=== PATIENT | male | born 1945 | race Caucasian/White ===

== ENCOUNTER → 2016-09-16 | Outpatient (CLI) | payer OTHER | LOC: PCVCCLINIC 14:00 | PROVIDERS: ATTEND Internal Medicine Cardiovascular Disease | DX: I25.10 Atherosclerotic heart disease of native coronary artery without angina pectoris (principal); I73.9 Peripheral vascular disease, unspecified; I77.9 Disorder of arteries and arterioles, unspecified; I10 Essential (primary) hypertension; E78.00 Pure hypercholesterolemia, unspecified; M19.90 Unspecified osteoarthritis, unspecified site; J44.9 Chronic obstructive pulmonary disease, unspecified; I48.91 Unspecified atrial fibrillation | CPT/HCPCS: 93005; G0463 ==

== ENCOUNTER → 2017-03-23 | Outpatient (CLI) | payer OTHER | END | disposition home or self-care (01) | LOC: PCVCCLINIC 15:10 | PROVIDERS: ATTEND Internal Medicine Cardiovascular Disease | DX: I48.91 Unspecified atrial fibrillation (principal); I73.9 Peripheral vascular disease, unspecified; I25.10 Atherosclerotic heart disease of native coronary artery without angina pectoris; I77.89 Other specified disorders of arteries and arterioles; J44.9 Chronic obstructive pulmonary disease, unspecified; E78.00 Pure hypercholesterolemia, unspecified; M19.90 Unspecified osteoarthritis, unspecified site; N18.9 Chronic kidney disease, unspecified; I12.9 Hypertensive chronic kidney disease with stage 1 through stage 4 chronic kidney disease, or unspecified chronic kidney disease; Z95.1 Presence of aortocoronary bypass graft; Z96.651 Presence of right artificial knee joint; Z87.891 Personal history of nicotine dependence; Z79.82 Long term (current) use of aspirin; Z79.84 Long term (current) use of oral hypoglycemic drugs; Z95.5 Presence of coronary angioplasty implant and graft | CPT/HCPCS: 80061; 93005; G0463 ==

== ENCOUNTER → 2017-08-23 | Outpatient (CLI) | payer MEDICARE ==
--- NOTE | 2017-08-23 15:16 | PCVCIMAG ---
EXAM: BILATERAL CAROTID DUPLEX INDICATION: Carotid Occlusive Disease. FINDINGS: Doppler Measurements (centimeters per second): RIGHT: Peak CCA-68, Peak ECA-314, Diastolic ICA-66, Peak ICA-294, ICA/CCA Ratio-4.3. LEFT: Peak CCA-83, Peak ECA-138, Diastolic ICA-59, Peak ICA-208, ICA/CCA Ratio-2.5. RIGHT CAROTID: Previous stent in the upper common carotid artery and extending into the internal carotid artery shows shadowing in its midportion. The proximal internal carotid artery shows 70-80% stenosis. The common carotid artery shows no significant stenosis. The external carotid artery shows 80% stenosis. LEFT CAROTID: The carotid bulb has moderate to severe plaque. The proximal internal carotid artery shows 60-70% stenosis. The common carotid artery shows no significant stenosis. The external carotid artery shows 40% stenosis. Antegrade flow in both vertebral arteries. IMPRESSION: 70-80% restenosis proximal right internal carotid artery within prior stent has developed since August 2016 study. 60-70% stenosis of the left internal carotid artery with moderately severe plaque plaque is unchanged. LOC:[id number]
--- NOTE | 2017-08-23 16:35 | PCVCIMAG ---
EXAM: BILATERAL LOWER EXTREMITY ARTERIAL DUPLEX INDICATION: Peripheral Arterial Disease. Leg pain. FINDINGS: Right Leg: Satisfactory arterial waveforms in the common femoral and profunda femoral artery. Previous stent in the mid/distal superficial femoral artery and popliteal artery showing satisfactory patency. The anterior tibial, peroneal, and posterior tibial arteries are patent. Left Leg: Satisfactory arterial waveforms in the common femoral profunda femoral artery. Mild stenosis [place] proximal superficial femoral artery not felt to be flow-limiting. The popliteal artery is patent. The anterior tibial, peroneal, and posterior tibial arteries are patent. IMPRESSION: No flow limiting stenosis in the right lower extremity. Previous stent in the right superficial femoral artery and right popliteal artery maintaining adequate patency. No flow limiting stenosis in the left lower extremity as detailed above.. LOC:[id number]
== END | disposition home or self-care (01) ==
LOC: PCVCIMAG 14:07
PROVIDERS: ATTEND Nuclear Medicine Nuclear Cardiology
DX: I65.23 Occlusion and stenosis of bilateral carotid arteries (principal); I73.9 Peripheral vascular disease, unspecified; E78.5 Hyperlipidemia, unspecified; I77.9 Disorder of arteries and arterioles, unspecified; I25.10 Atherosclerotic heart disease of native coronary artery without angina pectoris; I48.91 Unspecified atrial fibrillation; I12.9 Hypertensive chronic kidney disease with stage 1 through stage 4 chronic kidney disease, or unspecified chronic kidney disease; N18.9 Chronic kidney disease, unspecified; J44.9 Chronic obstructive pulmonary disease, unspecified; Z87.891 Personal history of nicotine dependence; Z79.899 Other long term (current) drug therapy
CPT/HCPCS: 36415; 93880; 93925; G0463

== ENCOUNTER → 2017-09-01 | Outpatient (CLI) | payer MEDICARE ==
[~2017-09-01] MED LIST: ASPIRIN 325 MG TABLET ONE; CLOPIDOGREL BISULFATE 75 MG TABLET ONE; DIAZEPAM 10 MG TABLET. ONE; EPINEPHrine 1 MG/ML VIAL ONE; HEPARIN SODIUM 5,000 UNIT/ML VIAL for PCVC. ONE; IODIXANOL 270 MG/ML 100 ML VIAL. ONE; IOHEXOL 300 MG/ML 100ML VIAL. ONE; IOHEXOL 350 MG/ML 100 ML VIAL. ONE; IV NORMAL SALINE 1000ML BAG 1,000 ML ONE; LIDOCAINE 1% Multi-Dose 20 ML VIAL. ONE; MIDAZOLAM HCL/PF 2 MG/2 ML VIAL. ONE; fentaNYL PF VIAL 100 MCG/2 ML VIAL ONE; hydrALAZINE 20 MG/ML VIAL. ONE
--- NOTE | 2017-09-01 10:47 | PCVCINTER ---
EXAM: 1. CERVICOEPHALIC ARCH AORTOGRAM 2. BILATERAL CAROTID ANGIOGRAPHY 3. LEFT VERTEBROBASILAR ANGIOGRAPHY 4. AORTOGRAM AND BILATERAL LOWER EXTREMITY RUNOFF ANGIOGRAM 5. BILATERAL RENAL ANGIOGRAPHY 6. RIGHT SUPERFICIAL FEMORAL ARTERY ATHERECTOMY AND STENT PLACEMENT. 7. SECONDARY THROMBECTOMY RIGHT SUPERFICIAL FEMORAL ARTERY. 8. DRUG COATED BALLOON ANGIOPLASTY RIGHT SUPERFICIAL FEMORAL ARTERY. INDICATION: Carotid occlusive disease. Left subclavian steal. Hypertension. Renal atherosclerosis. Peripheral arterial disease. Right leg claudication. PROCEDURE: Procedure and risks of the procedures listed above were discussed with the patient and consent obtained. Risks including but not limited to bleeding, infection, stroke, vascular injury, neurologic injury, embolization, allergic reactions, and contrast-induced nephropathy requiring dialysis were discussed as appropriate and consent obtained. Patient was placed on the angiography table. IV conscious sedation was utilized with appropriate monitoring from 8:00 AM through 10:00 AM. The left groin was prepped and draped in the normal sterile fashion. Ultrasound was used to interrogate the right groin and demonstrate the left common femoral artery. An ultrasound image was saved. Under ultrasound guidance a 21 gauge needle was used to gain access into the left common femoral artery and a 6F vascular sheath was placed. Dr. Hubbard joined the procedure and he then performed coronary angiography. Please see his separate dictation for full details. I then continued on with the procedure. Catheter was placed into the ascending aorta and cervicocephalic aortic arch angiogram performed. Catheter was placed into the suprarenal abdominal aorta and abdominal aortic angiogram performed. Catheter was placed into the right common carotid artery and right common carotid angiogram performed. Catheter was placed into the left common carotid artery and left common carotid angiogram performed. Catheter was placed into the left subclavian artery and left vertebro-basilar angiogram performed. Catheter was positioned at the aortic bifurcation and both oblique views of the pelvis were obtained. Catheter was positioned into the left external iliac artery and left leg runoff angiography was performed. Catheter was exchanged for a visceral catheter was placed into the right renal arteries and right renal angiograms obtained. Catheter was placed into the the left renal arteries and left renal angiograms were obtained. Catheter was advanced to the level of the right external iliac artery and right leg runoff angiography was obtained. Patient was given 4500 units of heparin. A 6 Upper [place] crossover sheath was placed via the left groin to the level of the right common femoral artery. Atherectomy of the right superficial femoral artery was performed with 2.0 mm SpectranetECOtality laser atherectomy catheter in the standard fashion. Following atherectomy small areas of thrombus were observed and because of this secondary thrombectomy throughout the right superficial femoral artery was carried out with mechanical suction thrombectomy catheter in the standard fashion. Minimal debris was removed. Stent placement across the areas of high-grade stenosis in the right superficial femoral artery was carried out with a 8 x 150 Smart control stent with subsequent dilatation to 6.0 mm. Following this drug coated balloon angioplasty of the right superficial femoral artery was carried out with a 6 x 120 and 6 x 40 Spectranetics Jaqui Bridger [employer] catheters. Follow-up angiogram was performed. Catheters and wires were removed and hemostasis obtained using the FISH device. No immediate complications. FINDINGS: Cervicocephalic arch aortogram: The origins of the great vessels show good patency. The right vertebral artery is dominant. Cranial directed flow in both vertebral arteries. Right common carotid angiogram: The right anterior and middle cerebral distributions are unremarkable. The cavernous and petrous internal carotid artery are patent. Previous stent in the distal common carotid artery and proximal internal carotid artery is widely patent. No significant internal carotid artery stenosis is seen. 80% stenosis at the origin of the external carotid artery. Left common carotid angiogram: The left anterior and middle cerebral distributions are unremarkable. There is a origin of the left posterior cerebral artery which is unremarkable. The cavernous and petrous internal carotid artery is patent. Ulcerated plaque proximal internal carotid artery results in maximum 50% stenosis. The common and external carotid arteries are patent. Left vertebrobasilar angiogram: 95% stenosis at the origin of the left vertebral artery. The left vertebral artery is otherwise patent as is the basilar artery. The left P1 segment is hypoplastic. The right posterior cerebral artery is patent. Aortogram: There is one right and one left renal artery. Mild plaque infrarenal abdominal aorta without significant stenosis. Pelvis: Previous stent in the left common and external iliac arteries is patent. The right common and external iliac artery are patent. The right and left common femoral and profunda femoral arteries are patent. Right renal artery: Moderate plaque proximal vessel does not cause significant stenosis. Left renal artery: Moderate plaque proximal vessel does not cause significant stenosis. Right leg: Areas of 80% stenosis in the mid/distal superficial femoral artery and the midportion of a prior stent and distal to the prior stent. Previous stent in the popliteal artery is widely patent. Three-vessel runoff into the foot. Left le% eccentric stenosis proximal superficial femoral artery is not flow-limiting. Eccentric 50% stenosis in the mid superficial femoral artery. The popliteal artery is patent. Three-vessel runoff into the foot. Right superficial femoral artery: Following procedure as above vessel shows satisfactory patency. IMPRESSION: Previous right internal carotid artery stent is maintaining good patency. No significant right carotid stenosis. Ulcerated plaque proximal left internal carotid artery results in 50% stenosis. 95% stenosis at the origin the left vertebral artery. The right vertebral artery is dominant. Areas of 80% stenosis mid/distal right superficial femoral artery was treated as above with satisfactory patency restored. 50% stenosis in the proximal and mid left superficial femoral artery not felt to be critically flow-limiting. LOC:[id number]
--- NOTE | 2017-09-01 17:18 | PCVCINTER ---
APPROVED REPORT Patient Details Patient Status: Out-Patient Room #: 2 The patient is a 72 year-old Male Event Personnel Balaji Ramírez RT(R), Bev Shin RT(R), Judy Simpson RN Risk Factors Arterial HypertensionDysplipidemia (Type: 1), Peripheral Vascular Disease, Chronic Lung DiseaseHypercholesterolemia, Diabetes (Control: Oral)Last Creatanine 1.3 Previous Procedures/Diagnoses Previous CABGPrevious PCI Procedure Narrative The patient was brought electively to the Cardiac Catheterization Laboratory and was prepped and draped in a sterile manner. The left femoral was infiltrated with 1% Lidocaine subcutaneous anesthesia. The left femoral accessed via ultrasound guidance. A 6fr sheath was inserted into the right femoral artery. Coronary angiography was performed using coronary diagnostic catheters. The right coronary system was accessed and visualized with a JR4 Diagnostic catheter. The left coronary system was accessed and visualized with a JL4 Diagnostic catheter. The left ventricle was accessed and visualized with a Pigtail Diagnostic catheter. Left ventriculogram was performed in ESCAMILLA projection. Closure device was deployed with a 6 Fr Fish. Hemostasis was obtained with manual pressure following sheath removal without any complications. The patient tolerated the procedure well and there were no complications associated with the procedure. There was no hematoma. Hemodynamics The aortic pressure is 152/50 mmHg with a mean of 86 mmHg. The left ventricular pressure is 146/4 mmHg with a mean of 14 mmHg. Conclusion # 1 normal left ventricular size and systolic function slight area of inferior basilar hypokinesis EF 55% #2 left main is small patent giving rise to LAD and circumflex. #3 LAD is mildly disease and occludes in the mid vessel. #4 circumflex OM is mildly diseased nondominant. #5 dominant right occluded #6 SVG to diagonal graft intact with mild disease #7 PARRA to LAD filling the mid-distal LAD diffusely diseased and retrograde filling septal and diagonal #8 SVG to the PDA filling the PDA and CHAPARRO with mild irregularity. Recommendations and plan continue aggressive risk factor modification there is no indication for coronary intervention. No lifting for 48 hours no line tub Jacuzzi or Wilcox for a week.
== END | disposition home or self-care (01) ==
LOC: PCVCINTER 07:22
PROVIDERS: ATTEND Nuclear Medicine Nuclear Cardiology
DX: I70.213 Atherosclerosis of native arteries of extremities with intermittent claudication, bilateral legs (principal); G45.8 Other transient cerebral ischemic attacks and related syndromes; I70.1 Atherosclerosis of renal artery; I65.29 Occlusion and stenosis of unspecified carotid artery; E78.00 Pure hypercholesterolemia, unspecified; E78.5 Hyperlipidemia, unspecified
CPT/HCPCS: 36223; 36225; 36252; 37186; 37227; 75716; 76937; 93459; 99152; 99153; C1725; C1751; C1757; C1760; C1769; C1876; C1885; C1894; C2623; J0171; J0360; J0690; J1644; J2250; J3010; J7030; Q9967

== ENCOUNTER → 2018-01-04 | Outpatient (CLI) | payer MEDICARE | END | disposition home or self-care (01) | LOC: PCVCIMAG 14:32 | DX: I73.9 Peripheral vascular disease, unspecified (principal); I12.9 Hypertensive chronic kidney disease with stage 1 through stage 4 chronic kidney disease, or unspecified chronic kidney disease; N18.9 Chronic kidney disease, unspecified; I48.91 Unspecified atrial fibrillation; I25.10 Atherosclerotic heart disease of native coronary artery without angina pectoris; E78.00 Pure hypercholesterolemia, unspecified; I77.9 Disorder of arteries and arterioles, unspecified; J44.9 Chronic obstructive pulmonary disease, unspecified; Z87.891 Personal history of nicotine dependence; Z79.899 Other long term (current) drug therapy; Z79.82 Long term (current) use of aspirin | CPT/HCPCS: 80061; 93005; 93926; G0463 ==

== ENCOUNTER → 2018-07-20 | Outpatient (CLI) | payer MEDICARE ==
--- NOTE | 2018-07-20 09:55 | PCVCIMAG ---
EXAM: BILATERAL CAROTID DUPLEX INDICATION: Carotid Occlusive Disease. FINDINGS: Doppler Measurements (centimeters per second): RIGHT: Peak CCA-59, Peak ECA-398, Diastolic ICA-59, Peak ICA-299, ICA/CCA Ratio-5.1. LEFT: Peak CCA-69, Peak ECA-129, Diastolic ICA-57, Peak ICA-230, ICA/CCA Ratio-3.0. RIGHT CAROTID: Previous stent upper common carotid artery extending into the internal carotid artery shows satisfactory color flow throughout. Increased systolic velocity proximal internal carotid artery within prior stent is similar to 2017 study at which time conventional angiogram showed the stent to maintaining good patency. The common carotid artery shows no significant stenosis. The external carotid artery shows 90% stenosis. LEFT CAROTID: The carotid bulb has moderately severe plaque. The proximal internal carotid artery shows 60-70% stenosis. The common carotid artery shows no significant stenosis. The external carotid artery shows 40% stenosis. Antegrade flow in both vertebral arteries. IMPRESSION: Increased systolic velocity 299 cm/s within prior stent in the proximal internal carotid artery is similar to 2017 ultrasound study at which time conventional angiography showed the stent was maintaining good patency. 60-70% stenosis of the left internal carotid artery with moderately severe plaque. Findings are unchanged 2017 study at which time conventional angiography showed maximum 50% stenosis. LOC:[id number]
--- NOTE | 2018-07-20 10:27 | PCVCIMAG ---
EXAM: AORTOILIAC DUPLEX INDICATION: Peripheral arterial disease FINDINGS: AORTA: Suprarenal aorta measures maximum diameter of 2.9 cm. There is not a fusiform infrarenal aortic aneurysm. The infrarenal aorta measures maximum diameter of 2.6 cm. No aortic stenosis. RIGHT COMMON ILIAC ARTERY: Maximum diameter is 1.1 cm. No significant stenosis. RIGHT EXTERNAL ILIAC ARTERY: No significant stenosis. LEFT COMMON ILIAC ARTERY: Maximum diameter is 1.1 cm. No significant stenosis. LEFT EXTERNAL ILIAC ARTERY: No significant stenosis. IMPRESSION: No abdominal aortic aneurysm. No aortoiliac stenosis seen. LOC:[id number]
--- NOTE | 2018-07-20 13:06 | PCVCIMAG ---
EXAM: BILATERAL LOWER EXTREMITY ARTERIAL DUPLEX INDICATION: Peripheral Arterial Disease. Leg pain. FINDINGS: Right Leg: Mild stenosis mid common femoral artery. Profunda femoral arteries patent. Superficial femoral artery and popliteal artery are patent. Previous stent mid/distal superficial femoral artery and proximal/mid popliteal artery are patent. The anterior tibial, peroneal, and posterior tibial arteries are patent. Left Leg: Common femoral profunda femoral arteries are patent. Superficial femoral artery and popliteal artery are patent. Anterior tibial, peroneal, and posterior tibial arteries are patent. IMPRESSION: Mild stenosis [place] right mid common femoral artery. Otherwise no flow limiting stenosis in the right lower extremity. Previous right superficial femoral artery and popliteal artery stents are patent. No flow limiting stenosis in the left lower extremity. LOC:[id number]
== END | disposition home or self-care (01) ==
LOC: PCVCIMAG 08:49
PROVIDERS: ATTEND Internal Medicine Cardiovascular Disease
DX: I65.23 Occlusion and stenosis of bilateral carotid arteries (principal); I77.9 Disorder of arteries and arterioles, unspecified; E78.00 Pure hypercholesterolemia, unspecified; I73.9 Peripheral vascular disease, unspecified; M25.551 Pain in right hip; M25.552 Pain in left hip; E78.5 Hyperlipidemia, unspecified; I12.9 Hypertensive chronic kidney disease with stage 1 through stage 4 chronic kidney disease, or unspecified chronic kidney disease; N18.9 Chronic kidney disease, unspecified; I48.91 Unspecified atrial fibrillation; M19.90 Unspecified osteoarthritis, unspecified site; G47.33 Obstructive sleep apnea (adult) (pediatric); Z95.1 Presence of aortocoronary bypass graft; Z87.891 Personal history of nicotine dependence
CPT/HCPCS: 93005; 93880; 93925; 93978; G0463

== ENCOUNTER → 2018-07-22 | Outpatient (CLI) | payer MEDICARE | END | disposition home or self-care (01) | LOC: PCVCCLINIC 09:00 | PROVIDERS: ATTEND Internal Medicine Cardiovascular Disease | DX: I25.10 Atherosclerotic heart disease of native coronary artery without angina pectoris (principal); I48.91 Unspecified atrial fibrillation; I73.9 Peripheral vascular disease, unspecified; E78.00 Pure hypercholesterolemia, unspecified; I10 Essential (primary) hypertension; I65.23 Occlusion and stenosis of bilateral carotid arteries; J44.9 Chronic obstructive pulmonary disease, unspecified; M19.90 Unspecified osteoarthritis, unspecified site; Z95.1 Presence of aortocoronary bypass graft; Z87.891 Personal history of nicotine dependence; Z79.82 Long term (current) use of aspirin | CPT/HCPCS: 93005; G0463 ==

== ENCOUNTER → 2019-01-11 | Outpatient (CLI) | payer MEDICARE | END | disposition home or self-care (01) | LOC: PCVCCLINIC 10:30 | PROVIDERS: ATTEND Internal Medicine Cardiovascular Disease | DX: I12.9 Hypertensive chronic kidney disease with stage 1 through stage 4 chronic kidney disease, or unspecified chronic kidney disease (principal); N18.9 Chronic kidney disease, unspecified; I25.10 Atherosclerotic heart disease of native coronary artery without angina pectoris; I65.23 Occlusion and stenosis of bilateral carotid arteries; E78.00 Pure hypercholesterolemia, unspecified; M25.551 Pain in right hip; M25.552 Pain in left hip; I73.9 Peripheral vascular disease, unspecified; I48.0 Paroxysmal atrial fibrillation; M19.90 Unspecified osteoarthritis, unspecified site; Z79.899 Other long term (current) drug therapy; Z79.82 Long term (current) use of aspirin; Z87.891 Personal history of nicotine dependence | CPT/HCPCS: 36415; 80061; 93005; G0463 ==

== ENCOUNTER → 2019-01-25 | Outpatient (CLI) | payer MEDICARE ==
--- NOTE | 2019-01-25 16:46 | PCVCIMAG ---
EXAM: NONINVASIVE ARTERIAL EXAMINATION OF BOTH LOWER EXTREMITIES INCLUDING PRE AND POST EXERCISE PRESSURE MEASUREMENTS AND DOPPLER WAVEFORMS INDICATION: Peripheral Arterial Disease. Leg pain. FINDINGS: Right Brachial: 132 mm Hg. Right Dorsalis Pedis: Noncompressible . Right Posterior Tibial: 152 mm Hg. Right FELICITA = 1.14. Left Brachial: 133 mm Hg. Left Dorsalis Pedis: Noncompressible. Left Posterior Tibial: 223 mm Hg. Left FELICITA = 1.68. Post Exercise: Left Brachial 153 mm Hg. Right Posterior Tibial: 132 mm Hg. Left Posterior Tibial: 167 mm Hg. Right FELICITA = 0.86. Left FELICITA = 1.09. IMPRESSION: No resting ischemia in the right lower extremity. Minimal exercise induced ischemia in the right lower extremity. No resting ischemia in the left lower extremity. No exercise induced ischemia in the left lower extremity. LOC:[id number]
--- NOTE | 2019-01-25 16:49 | PCVCIMAG ---
EXAM: BILATERAL LOWER EXTREMITY ARTERIAL DUPLEX INDICATION: Peripheral Arterial Disease. Leg pain. FINDINGS: Right Leg: Increased systolic velocity of 291 cm/s mid [place] common femoral artery consistent with 60% stenosis. Profunda femoral arteries patent. Superficial femoral artery and popliteal artery patent including areas of prior stent. The anterior tibial, peroneal, and posterior tibial arteries are patent. Left Leg: Satisfactory arterial waveforms throughout the common/profunda/superficial femoral, popliteal, anterior tibial, peroneal, and posterior tibial arteries. No flow limiting stenosis seen. IMPRESSION: 60% stenosis mid [place] right common femoral artery. Previous right superficial femoral artery and popliteal artery stents are patent. No flow limiting stenosis in the left lower extremity. LOC:[id number]
== END | disposition home or self-care (01) ==
LOC: PCVCIMAG 08:00
PROVIDERS: ATTEND Nuclear Medicine Nuclear Cardiology
DX: I73.9 Peripheral vascular disease, unspecified (principal); I10 Essential (primary) hypertension; M25.551 Pain in right hip; M25.552 Pain in left hip
CPT/HCPCS: 93924; 93925

== ENCOUNTER → 2019-07-31 | Outpatient (CLI) | payer MEDICARE ==
[~2019-07-31] MED LIST changes: -ASPIRIN 325 MG TABLET ONE; -CLOPIDOGREL BISULFATE 75 MG TABLET ONE; -DIAZEPAM 10 MG TABLET. ONE; -EPINEPHrine 1 MG/ML VIAL ONE; -HEPARIN SODIUM 5,000 UNIT/ML VIAL for PCVC. ONE; -IODIXANOL 270 MG/ML 100 ML VIAL. ONE; -IOHEXOL 300 MG/ML 100ML VIAL. ONE; -IOHEXOL 350 MG/ML 100 ML VIAL. ONE; -IV NORMAL SALINE 1000ML BAG 1,000 ML ONE; -LIDOCAINE 1% Multi-Dose 20 ML VIAL. ONE; -MIDAZOLAM HCL/PF 2 MG/2 ML VIAL. ONE; +REGADENOSON 0.4 MG/5 ML DISP.SYRIN. IV ONE; -fentaNYL PF VIAL 100 MCG/2 ML VIAL ONE; -hydrALAZINE 20 MG/ML VIAL. ONE
--- NOTE | 2019-07-31 16:48 | PCVCIMAG ---
APPROVED REPORT Imaging Protocol: Rest Tc-99m/Stress Tc-99m 1 day Study performed: 07/31/2019 09:38:25 Indication: Atrial Fibrillation, CAD, CKD Patient Location: Out-Patient Stress Nurse: Julissa Gomez RN [place] Tech:Jhoana Olivarezeloisa [facility] Ht: 5 ft 3 in Wt: 179 lbs BSA: 1.84 m2 HR: 56 bpm BP: 200/90 mmHg BMI: 31.7 Rhythm: Bradycardia Medical History Medical History: Hyperlipidemia, HTN, CVD, CAD, PVD, Former Smoker, Atrial Fibrillation Medications: Olmesartan, Aspirin, Bystolic, Xarelto, Crestor, Zetia Allergies: No known drug allergies Cardiac Risk Factors: Age Previous Cardiac Procedures: 2004 CABG Pretest Chest Pain Characteristics: No chest pain Exercise History: Indeterminate Meds Held (24 hrs): Bystolic Resting Data Rest SPECT myocardial perfusion imaging was performed in supine position 45 minutes following the intravenous injection of 9.2 mCi of Tc-99m Sestamibi. Time of rest injection: 0940 Date: 07/31/2019 Administration Route: IV Administration Site: Right Hand Pharmacologic Stress Pharmacologic stress test was performed by injecting Regadenoson 0.4 mg IV push over 10-15 seconds immediately followed by the intravenous injection of 32.1 mCi of Tc-99m Sestamibi. Time of stress injection: 1100 Date: 07/31/2019 Administration Route: IV Administration Site: Right Hand Gated Stress SPECT was performed 45 minutes after stress injection. The images were gated to evaluate regional wall motion and calculate left ventricular ejection fraction. Stress Test Details Stress Test: Pharmacologic stress testing performed using 0.4 mg of regadenoson per 5 mL given IV over 10 seconds. Reason for pharmacologic stress test: physical limitation, leg issues. HRMax Heart Rate (APMHR): 147 bpm Resting HR: 56 bpmTarget HR (85% APMHR): 124 bpm Max HR Achieved: 68 bpm % of APMHR: 46 Recovery HR: 57 bpm BP Resting BP: 200/90 mmHg Max BP: 204/86 mmHg Recovery BP: 185/80 mmHg ECG Resting ECG: Sinus Bradycardia Stress ECG: Sinus Rhythm Arrhythmia: PVC's Recovery ECG: Sinus Bradycardia Clinical Reason for Termination: Completed protocol Stress Symptoms: Dyspnea Symptoms resolved with caffeine. Stress ECG Conclusion ECG: Non-ischemic Study Quality Study: Good Study Data Post stress, the left ventricular ejection was 55%.. SSS: 0 SRS: 0 SDS: 0 TID = 1.09. Perfusion No evidence of stress induced ischemia or prior myocardial infarction. Wall Motion Normal left ventricular size and function with no regional wall motion abnormalities. Nuclear Conclusion No evidence of stress induced ischemia or prior myocardial infarction. Normal left ventricular size and function with no regional wall motion abnormalities. Post stress, the left ventricular ejection was 55%. No change since prior study dated August 2015. Interpreted by: Yunier Be MD Electronically Approved: 07/31/2019 12:33:32 <Conclusion> ECG: Non-ischemic
== END | disposition home or self-care (01) ==
LOC: PCVCIMAG 09:22
PROVIDERS: ATTEND Internal Medicine Cardiovascular Disease
DX: I48.91 Unspecified atrial fibrillation (principal); I25.10 Atherosclerotic heart disease of native coronary artery without angina pectoris; N18.9 Chronic kidney disease, unspecified
CPT/HCPCS: 78452; 93017; A9500; J2785